=== PATIENT | female | born 1945 | race Asian ===

== ENCOUNTER 2018-09-23 16:40 | Inpatient (IN) | payer MEDICARE, OTHER ==
[2018-09-23 19:55] LABS: ADD MAN DIFF? NO; BASOPHIL # 0.1 10^3/ul (0.0-0.1); BASOPHILS % 0.5 % (0.0-2.0); EOSINOPHILS # 0.3 10^3/ul (0.0-0.5); EOSINOPHILS % 2.9 % (0.0-7.0); HEMATOCRIT 30.9 % (37.0-47.0); HEMOGLOBIN 10.1 g/dl (12.0-16.0); LYMPHOCYTES # 1.8 10^3/ul (0.8-2.9); LYMPHOCYTES % 16.4 % (15.0-51.0); MEAN CORPUSCULAR HGB CONC 32.7 g/dl (32.0-37.0); MEAN CORPUSCULAR VOLUME 91.7 fl (82.0-101.0); MEAN PLATELET VOLUME 8.8 fl (7.4-10.4); MONOCYTE # 0.9 10^3/ul (0.3-0.9); MONOCYTES % 8.4 % (0.0-11.0); NEUTROPHIL # 7.7 10^3/ul (1.6-7.5); NEUTROPHILS % 71.3 % (39.0-77.0); PLATELET COUNT 292 10^3/UL (140-415); RED BLOOD COUNT 3.37 10^6/ul (4.20-5.40); RED CELL DISTRIBUTION WIDTH 13.1 % (11.5-14.5)
[2018-09-23 19:55] LABS: WHITE BLOOD COUNT 10.7 10^3/ul (4.8-10.8)
[2018-09-23] MEDS: ONDANSETRON 4 MG INJ IV (20:02)
[2018-09-23] MEDS: morphine 4 MG/ML VIAL IV (20:03)
[2018-09-23] MEDS: SOD CHLORIDE 0.9% 1,000 ML IV (20:04)
[2018-09-23 20:05] LABS: ADD UMIC YES; UR ASCORBIC ACID NEGATIVE (NEGATIVE); UR BACTERIA FEW /HPF (NONE SEEN); UR BILIRUBIN (Dip) NEGATIVE (NEGATIVE); UR BLOOD (Dip) 1+ mg/dL (NEGATIVE); UR CLARITY CLEAR (CLEAR); UR COLOR STRAW (YELLOW); UR GLUCOSE (Dip) 1+ mg/dL (NEGATIVE); UR KETONES (Dip) NEGATIVE (NEGATIVE); UR LEUKOCYTE ESTERASE (Dip) NEGATIVE Leu/ul (NEGATIVE); UR NITRITE (Dip) NEGATIVE (NEGATIVE); UR RBC 0 /HPF (0-5); UR SPECIFIC GRAVITY (Dip) 1.009 (1.003-1.030); UR TOTAL PROTEIN (Dip) 2+ mg/dl (NEGATIVE); UR UROBILINOGEN (Dip) NEGATIVE (NEGATIVE); UR WBC 3 /HPF (0-5)
[2018-09-23 20:13] LABS: ALBUMIN 4.6 g/dl (3.3-4.9); ALBUMIN/GLOBULIN RATIO 1.02; ALKALINE PHOSPHATASE 89 IU/L (42-121); ANION GAP 12 (5-13); ASPARTATE AMINO TRANSFERASE 19 IU/L (15-46); BILIRUBIN,INDIRECT 0.2 mg/dl (0-1.1); BILIRUBIN,TOTAL 0.2 mg/dl (0.2-1.3); BLOOD UREA NITROGEN 86 mg/dl (7-20); CALCIUM 9.5 mg/dl (8.4-10.2); CARBON DIOXIDE 16 mmol/L (21-31); CHLORIDE 113 mmol/L (97-110); GLUCOSE 95 mg/dl (70-220); LIPASE 678 U/L (23-300); SODIUM 141 mmol/L (135-144); TOTAL PROTEIN 9.1 g/dl (6.1-8.1)
[2018-09-23 20:27] LABS: ALANINE AMINOTRANSFERASE < 6 IU/L (13-69); POTASSIUM 7.6 mmol/L (3.5-5.1)
[2018-09-23] MEDS ORDERED: NA POLYST SULFON 15 GM/60 ML BTL PO ×2 (20:31→23:00)
[2018-09-23] MEDS: NA BICARBONATE 8.4% 50 ML SYG IV (21:01)
[2018-09-23] MEDS: CA CHLORIDE 10% 10 ML SYRINGE IV (21:01)
[2018-09-23] MEDS: NA POLYST SULFON 15 GM/60 ML BTL PO ×2 (21:08→21:32)
[2018-09-23] MEDS: ALBUTEROL 0.5% (NEB) 2.5 MG/0.5 ML AMP INH (21:38)
[2018-09-23] MEDS ORDERED: ACETAMINOPHEN 325 MG TAB PO (23:00)
[2018-09-23] MEDS ORDERED: ONDANSETRON 4 MG INJ IV (23:00)
[2018-09-24] MEDS ORDERED: NACL 0.9% 3 ML SYG IV
[2018-09-24] MEDS ORDERED: LORAZEPAM 1 MG TAB PO
[2018-09-24] MEDS ORDERED: ACETAMINOPHEN 650 MG SUPP PR
[2018-09-24] MEDS ORDERED: ZOLPIDEM 5 MG TAB PO
[2018-09-24] MEDS ORDERED: ONDANSETRON 4 MG INJ IV
[2018-09-24] MEDS ORDERED: GLUCAGON 1 MG INJ IM (00:30)
[2018-09-24] MEDS ORDERED: GLUCOSE GEL 15 GRAM TUBE BUCCAL (00:30)
[2018-09-24] MEDS ORDERED: GLUCOSE GEL 15 GRAM TUBE PO ×2 (00:30)
[2018-09-24] MEDS ORDERED: DEXTROSE 50% 50 ML SYRINGE IV ×2 (00:30)
[2018-09-24 00:33] LABS: SODIUM,URINE RANDOM 89 mmol/L (30-90)
[2018-09-24 00:33] LABS: CREATININE,URINE RANDOM 42.01 mg/dl (20-320)
[2018-09-24 00:34] LABS: CREATININE,URINE RANDOM 42.03 mg/dl (20-320)
[2018-09-24] MEDS: INSULIN ASPART [NOVOLOG] 3 ML PEN SC ×6 (01:00→22:41)
[2018-09-24] MEDS: SOD CHLORIDE 0.45% 1,000 ML IV ×2 (01:09→17:59)
[2018-09-24 01:13] LABS: ANION GAP 11 (5-13); BLOOD UREA NITROGEN 82 mg/dl (7-20); CALCIUM 10.3 mg/dl (8.4-10.2); CARBON DIOXIDE 14 mmol/L (21-31); CHLORIDE 119 mmol/L (97-110); CREATININE 4.69 mg/dl (0.44-1.00); GLUCOSE 110 mg/dl (70-220); SODIUM 144 mmol/L (135-144)
[2018-09-24 01:23] LABS: POTASSIUM 6.4 mmol/L (3.5-5.1)
[2018-09-24] MEDS: ACCU-CHEK XX (02:00)
[2018-09-24 03:03] LABS: HEMOGLOBIN A1C 6.3 % (0-5.9)
[2018-09-24] MEDS: PANTOPRAZOLE 40 MG INJ IV ×2 (05:18→05:19)
[2018-09-24] MEDS: NA POLYST SULFON 15 GM/60 ML BTL PO ×2 (05:18→11:25)
[2018-09-24 05:39] LABS: ADD MAN DIFF? NO; HAAIG REFLEX REFLEX FILED
[2018-09-24 05:43] LABS: BASOPHIL # 0.1 10^3/ul (0.0-0.1); BASOPHILS % 0.5 % (0.0-2.0); EOSINOPHILS # 0.2 10^3/ul (0.0-0.5); EOSINOPHILS % 2.6 % (0.0-7.0); HEMATOCRIT 26.4 % (37.0-47.0); HEMOGLOBIN 8.3 g/dl (12.0-16.0); LYMPHOCYTES # 1.7 10^3/ul (0.8-2.9); MEAN CORPUSCULAR HEMOGLOBIN 29.4 pg (29.0-33.0); MEAN CORPUSCULAR HGB CONC 31.4 g/dl (32.0-37.0); MEAN CORPUSCULAR VOLUME 93.6 fl (82.0-101.0); MEAN PLATELET VOLUME 9.3 fl (7.4-10.4); MONOCYTE # 0.7 10^3/ul (0.3-0.9); NEUTROPHIL # 6.5 10^3/ul (1.6-7.5); NEUTROPHILS % 70.5 % (39.0-77.0); PLATELET COUNT 256 10^3/UL (140-415); RED BLOOD COUNT 2.82 10^6/ul (4.20-5.40); RED CELL DISTRIBUTION WIDTH 13.2 % (11.5-14.5)
[2018-09-24 05:43] LABS: WHITE BLOOD COUNT 9.2 10^3/ul (4.8-10.8)
[2018-09-24 06:08] LABS: HEMOGLOBIN A1C 6.3 % (0-5.9)
[2018-09-24 06:32] LABS: ALANINE AMINOTRANSFERASE 23 IU/L (13-69); ALBUMIN 3.5 g/dl (3.3-4.9); ALBUMIN/GLOBULIN RATIO 1.16; ALKALINE PHOSPHATASE 67 IU/L (42-121); ANION GAP 10 (5-13); ASPARTATE AMINO TRANSFERASE 13 IU/L (15-46); BILIRUBIN,INDIRECT 0.2 mg/dl (0-1.1); BILIRUBIN,TOTAL 0.2 mg/dl (0.2-1.3); BLOOD UREA NITROGEN 78 mg/dl (7-20); CALCIUM 9.6 mg/dl (8.4-10.2); CARBON DIOXIDE 15 mmol/L (21-31); CHLORIDE 118 mmol/L (97-110); CREATININE 4.66 mg/dl (0.44-1.00); GLUCOSE 90 mg/dl (70-220); SODIUM 143 mmol/L (135-144); TOTAL PROTEIN 6.5 g/dl (6.1-8.1)
[2018-09-24 06:39] LABS: POTASSIUM 7.1 mmol/L (3.5-5.1)
[2018-09-24 06:50] LABS: HEPATITIS B SURFACE ANTIGEN NEGATIVE (NEGATIVE)
[2018-09-24] MEDS ORDERED: NA POLYST SULFON 15 GM/60 ML BTL PO ×2 (07:00→11:00)
[2018-09-24 07:08] LABS: HEPATITIS B CORE ANTIBODY NEGATIVE (NEGATIVE); HEPATITIS C VIRAL ANTIBODY NEGATIVE (NEGATIVE)
[2018-09-24] MEDS: ASPIRIN (EC) 81 MG TAB PO (09:17)
[2018-09-24] MEDS: AMLODIPINE 10 MG TAB PO (09:18)
[2018-09-24] MEDS: ENOXAPARIN 30 MG/0.3 ML SYG SC (09:19)
[2018-09-24 09:54] LABS: ANION GAP 12 (5-13); BLOOD UREA NITROGEN 75 mg/dl (7-20); CALCIUM 9.1 mg/dl (8.4-10.2); CARBON DIOXIDE 14 mmol/L (21-31); CHLORIDE 120 mmol/L (97-110); CREATININE 4.39 mg/dl (0.44-1.00); GLUCOSE 98 mg/dl (70-220); SODIUM 146 mmol/L (135-144)
[2018-09-24 10:06] LABS: POTASSIUM 6.6 mmol/L (3.5-5.1)
[2018-09-24 11:35] LABS: AADO2 Arterial 54.6 mmHg (7.0-24.0); Allen Test ACCEPTAB; Arterial Base Excess -12.1 mmol/L (-3.0-3); Arterial Blood Gas Oxygen Sat 96.7 mmHG (95.0-100.0); Arterial COHb 0.3 % (0.0-3.0); Arterial Fraction of Oxyhgb 96.3 % (93.0-99.0); Arterial HCO3 14.3 mmol/L (22.0-26.0); Arterial MetHb 0.1 % (0.0-1.5); Arterial pCO2 34.4 mmhg (35-45); MODE NASAL CANNULA; Site Right Radial
[2018-09-24] MEDS: SODIUM BICARBONATE (IV ADD) 150 MEQ in DEXTROSE 5% 850 ML IV (12:21)
[2018-09-24] MEDS: METOPROLOL (XL) 50 MG TAB PO (12:41)
[2018-09-24 14:19] LABS: ANION GAP 12 (5-13); BLOOD UREA NITROGEN 71 mg/dl (7-20); CALCIUM 9.6 mg/dl (8.4-10.2); CARBON DIOXIDE 16 mmol/L (21-31); CHLORIDE 117 mmol/L (97-110); CREATININE 4.66 mg/dl (0.44-1.00); GLUCOSE 131 mg/dl (70-220); SODIUM 145 mmol/L (135-144)
[2018-09-24] MEDS ORDERED: HEPARIN 1000 UNITS/ML 10 ML INJ (14:26)
[2018-09-24 14:30] LABS: POTASSIUM 6.4 mmol/L (3.5-5.1)
[2018-09-24] MEDS: HEPARIN 1000 UNITS/ML 10 ML INJ CATHETER ×2 (14:59→20:18)
[2018-09-24] MEDS: MANNITOL 25% 50 ML INJ IV* ×2 (18:09→19:13)
[2018-09-24] MEDS: ATORVASTATIN 20 MG TAB PO (21:25)
[2018-09-24 22:51] LABS: ANION GAP 12 (5-13); BLOOD UREA NITROGEN 42 mg/dl (7-20); CARBON DIOXIDE 20 mmol/L (21-31); CHLORIDE 108 mmol/L (97-110); CREATININE 2.97 mg/dl (0.44-1.00); GLUCOSE 203 mg/dl (70-220); SODIUM 140 mmol/L (135-144)
[2018-09-25] MEDS: ACCU-CHEK XX (01:36)
[2018-09-25 04:54] LABS: ADD MAN DIFF? NO
[2018-09-25 04:59] LABS: WHITE BLOOD COUNT 11.4 10^3/ul (4.8-10.8)
[2018-09-25 04:59] LABS: BASOPHIL # 0.1 10^3/ul (0.0-0.1); BASOPHILS % 0.4 % (0.0-2.0); EOSINOPHILS # 0.3 10^3/ul (0.0-0.5); EOSINOPHILS % 2.9 % (0.0-7.0); HEMOGLOBIN 8.6 g/dl (12.0-16.0); LYMPHOCYTES # 1.4 10^3/ul (0.8-2.9); LYMPHOCYTES % 11.9 % (15.0-51.0); MEAN CORPUSCULAR HEMOGLOBIN 29.6 pg (29.0-33.0); MEAN CORPUSCULAR HGB CONC 31.9 g/dl (32.0-37.0); MEAN CORPUSCULAR VOLUME 92.8 fl (82.0-101.0); MEAN PLATELET VOLUME 9.1 fl (7.4-10.4); MONOCYTES % 8.3 % (0.0-11.0); NEUTROPHIL # 8.7 10^3/ul (1.6-7.5); NEUTROPHILS % 76.1 % (39.0-77.0); PLATELET COUNT 208 10^3/UL (140-415); RED BLOOD COUNT 2.91 10^6/ul (4.20-5.40)
[2018-09-25 05:24] LABS: ANION GAP 11 (5-13); BLOOD UREA NITROGEN 45 mg/dl (7-20); CALCIUM 8.2 mg/dl (8.4-10.2); CARBON DIOXIDE 22 mmol/L (21-31); CHLORIDE 112 mmol/L (97-110); CREATININE 3.32 mg/dl (0.44-1.00); GLUCOSE 109 mg/dl (70-220); POTASSIUM 4.4 mmol/L (3.5-5.1); SODIUM 145 mmol/L (135-144)
[2018-09-25 05:31] LABS: PHOSPHORUS 4.9 mg/dl (2.5-4.9)
[2018-09-25 05:31] LABS: MAGNESIUM 1.5 mg/dl (1.7-2.5)
[2018-09-25] MEDS: PANTOPRAZOLE (EC) 40 MG TAB PO (06:00)
[2018-09-25] MEDS: INSULIN ASPART [NOVOLOG] 3 ML PEN SC ×4 (07:35→21:00)
[2018-09-25] MEDS: AMLODIPINE 10 MG TAB PO (08:45)
[2018-09-25] MEDS: ASPIRIN (EC) 81 MG TAB PO (08:46)
[2018-09-25] MEDS: METOPROLOL (XL) 50 MG TAB PO ×2 (08:47→09:00)
[2018-09-25] MEDS: ENOXAPARIN 30 MG/0.3 ML SYG SC (08:49)
[2018-09-25 11:01] LABS: ANION GAP 10 (5-13); BLOOD UREA NITROGEN 47 mg/dl (7-20); CALCIUM 7.8 mg/dl (8.4-10.2); CARBON DIOXIDE 21 mmol/L (21-31); CHLORIDE 111 mmol/L (97-110); CREATININE 3.29 mg/dl (0.44-1.00); GLUCOSE 126 mg/dl (70-220); POTASSIUM 4.5 mmol/L (3.5-5.1); SODIUM 142 mmol/L (135-144)
[2018-09-25] MEDS: SOD CHLORIDE 0.45% 1,000 ML IV (12:57)
[2018-09-25] MEDS: ACETAMINOPHEN 325 MG TAB PO (15:19)
[2018-09-25 18:06] LABS: ANION GAP 12 (5-13); BLOOD UREA NITROGEN 48 mg/dl (7-20); CALCIUM 8.2 mg/dl (8.4-10.2); CARBON DIOXIDE 22 mmol/L (21-31); CHLORIDE 109 mmol/L (97-110); CREATININE 3.56 mg/dl (0.44-1.00); GLUCOSE 94 mg/dl (70-220); POTASSIUM 4.7 mmol/L (3.5-5.1); SODIUM 143 mmol/L (135-144)
[2018-09-25] MEDS: traMADol 50 MG TAB PO (18:56)
[2018-09-25] MEDS: ATORVASTATIN 20 MG TAB PO (21:03)
[2018-09-26] MEDS: ACCU-CHEK XX (02:00)
[2018-09-26] MEDS: ACETAMINOPHEN 325 MG TAB PO (03:06)
[2018-09-26] MEDS: SOD CHLORIDE 0.45% 1,000 ML IV (05:12)
[2018-09-26] MEDS: PANTOPRAZOLE (EC) 40 MG TAB PO (05:12)
[2018-09-26 05:44] LABS: ADD MAN DIFF? NO
[2018-09-26 05:48] LABS: BASOPHILS % 0.2 % (0.0-2.0); EOSINOPHILS # 0.2 10^3/ul (0.0-0.5); EOSINOPHILS % 1.2 % (0.0-7.0); HEMATOCRIT 24.5 % (37.0-47.0); LYMPHOCYTES # 1.3 10^3/ul (0.8-2.9); LYMPHOCYTES % 9.1 % (15.0-51.0); MEAN CORPUSCULAR HEMOGLOBIN 29.6 pg (29.0-33.0); MEAN CORPUSCULAR HGB CONC 32.7 g/dl (32.0-37.0); MEAN CORPUSCULAR VOLUME 90.7 fl (82.0-101.0); MEAN PLATELET VOLUME 9.5 fl (7.4-10.4); MONOCYTE # 1.3 10^3/ul (0.3-0.9); MONOCYTES % 9.4 % (0.0-11.0); NEUTROPHIL # 11.2 10^3/ul (1.6-7.5); NEUTROPHILS % 79.7 % (39.0-77.0); PLATELET COUNT 202 10^3/UL (140-415)
[2018-09-26 06:04] LABS: ALANINE AMINOTRANSFERASE 11 IU/L (13-69); ALBUMIN 3.5 g/dl (3.3-4.9); ALBUMIN/GLOBULIN RATIO 0.97; ALKALINE PHOSPHATASE 73 IU/L (42-121); ANION GAP 10 (5-13); ASPARTATE AMINO TRANSFERASE 15 IU/L (15-46); BILIRUBIN,INDIRECT 0.3 mg/dl (0-1.1); BILIRUBIN,TOTAL 0.3 mg/dl (0.2-1.3); BLOOD UREA NITROGEN 47 mg/dl (7-20); CALCIUM 8.3 mg/dl (8.4-10.2); CARBON DIOXIDE 22 mmol/L (21-31); CHLORIDE 112 mmol/L (97-110); CREATININE 3.55 mg/dl (0.44-1.00); GLUCOSE 117 mg/dl (70-220); POTASSIUM 4.9 mmol/L (3.5-5.1); SODIUM 144 mmol/L (135-144); TOTAL PROTEIN 7.1 g/dl (6.1-8.1)
[2018-09-26] MEDS: INSULIN ASPART [NOVOLOG] 3 ML PEN SC ×4 (07:51→21:00)
[2018-09-26] MEDS: traMADol 50 MG TAB PO (08:13)
[2018-09-26] MEDS: ASPIRIN (EC) 81 MG TAB PO (08:13)
[2018-09-26] MEDS: AMLODIPINE 10 MG TAB PO (08:13)
[2018-09-26] MEDS: METOPROLOL (XL) 50 MG TAB PO (08:14)
[2018-09-26] MEDS: ENOXAPARIN 30 MG/0.3 ML SYG SC (08:22)
[2018-09-26] MEDS: HEPARIN 1000 UNITS/ML 10 ML INJ CATHETER (10:56)
[2018-09-26] MEDS: BISACODYL (EC) 5 MG TAB PO (12:44)
[2018-09-26] MEDS: POLYETHYLENE GLYCOL 17 GM PACKET PO (12:44)
[2018-09-26 15:37] LABS: URIC ACID 4.9 mg/dl (3.1-7.9)
[2018-09-26] MEDS: CEFTRIAXONE 1 GM/50 ML (PMX) 50 ML IVPB (18:25)
[2018-09-26] MEDS: ATORVASTATIN 20 MG TAB PO (21:11)
[2018-09-26] MEDS: IBUPROFEN 600 MG TAB PO (21:12)
[2018-09-27] MEDS: ACCU-CHEK XX (02:00)
[2018-09-27] MEDS: PANTOPRAZOLE (EC) 40 MG TAB PO (05:34)
[2018-09-27 05:44] LABS: WHITE BLOOD COUNT 12.8 10^3/ul (4.8-10.8)
[2018-09-27 05:44] LABS: ADD MAN DIFF? NO; BASOPHILS % 0.3 % (0.0-2.0); EOSINOPHILS # 0.3 10^3/ul (0.0-0.5); HEMATOCRIT 23.4 % (37.0-47.0); HEMOGLOBIN 7.6 g/dl (12.0-16.0); LYMPHOCYTES # 1.8 10^3/ul (0.8-2.9); LYMPHOCYTES % 14.1 % (15.0-51.0); MEAN CORPUSCULAR HEMOGLOBIN 29.7 pg (29.0-33.0); MEAN CORPUSCULAR HGB CONC 32.5 g/dl (32.0-37.0); MEAN CORPUSCULAR VOLUME 91.4 fl (82.0-101.0); MEAN PLATELET VOLUME 9.6 fl (7.4-10.4); MONOCYTE # 1.4 10^3/ul (0.3-0.9); MONOCYTES % 10.5 % (0.0-11.0); NEUTROPHIL # 9.3 10^3/ul (1.6-7.5); NEUTROPHILS % 72.6 % (39.0-77.0); PLATELET COUNT 196 10^3/UL (140-415); RED BLOOD COUNT 2.56 10^6/ul (4.20-5.40); RED CELL DISTRIBUTION WIDTH 12.9 % (11.5-14.5)
[2018-09-27 06:31] LABS: ALANINE AMINOTRANSFERASE 11 IU/L (13-69); ALBUMIN 3.4 g/dl (3.3-4.9); ALBUMIN/GLOBULIN RATIO 0.97; ALKALINE PHOSPHATASE 67 IU/L (42-121); ANION GAP 14 (5-13); ASPARTATE AMINO TRANSFERASE 15 IU/L (15-46); BILIRUBIN,INDIRECT 0.2 mg/dl (0-1.1); BILIRUBIN,TOTAL 0.2 mg/dl (0.2-1.3); BLOOD UREA NITROGEN 49 mg/dl (7-20); CALCIUM 8.2 mg/dl (8.4-10.2); CARBON DIOXIDE 20 mmol/L (21-31); CHLORIDE 109 mmol/L (97-110); CREATININE 3.65 mg/dl (0.44-1.00); GLUCOSE 117 mg/dl (70-220); POTASSIUM 4.5 mmol/L (3.5-5.1); SODIUM 143 mmol/L (135-144); TOTAL PROTEIN 6.9 g/dl (6.1-8.1)
[2018-09-27] MEDS: INSULIN ASPART [NOVOLOG] 3 ML PEN SC ×4 (07:54→20:46)
[2018-09-27] MEDS: AMLODIPINE 10 MG TAB PO (08:49)
[2018-09-27] MEDS: IBUPROFEN 600 MG TAB PO ×2 (08:49→20:47)
[2018-09-27] MEDS: ASPIRIN (EC) 81 MG TAB PO (08:49)
[2018-09-27] MEDS: METOPROLOL (XL) 50 MG TAB PO (08:50)
[2018-09-27] MEDS: ENOXAPARIN 30 MG/0.3 ML SYG SC (08:55)
[2018-09-27] MEDS: POLYETHYLENE GLYCOL 17 GM PACKET PO (08:56)
[2018-09-27 14:48] LABS: URIC ACID 7.1 mg/dl (3.1-7.9)
[2018-09-27] MEDS: CEFTRIAXONE 1 GM/50 ML (PMX) 50 ML IVPB (17:17)
[2018-09-27] MEDS: EPOETIN 3000 UNITS/1 ML INJ (ESRD) SC (17:18)
[2018-09-27 17:22] LABS: HEMATOCRIT 28.2 % (37.0-47.0)
[2018-09-27] MEDS: ATORVASTATIN 20 MG TAB PO (20:47)
[2018-09-27] MEDS: HEPARIN 1000 UNITS/ML 10 ML INJ CATHETER (20:50)
[2018-09-28] MEDS: ACCU-CHEK XX (02:00)
[2018-09-28] MEDS: PANTOPRAZOLE (EC) 40 MG TAB PO (05:32)
[2018-09-28] MEDS: traMADol 50 MG TAB PO (05:33)
[2018-09-28] MEDS: INSULIN ASPART [NOVOLOG] 3 ML PEN SC ×4 (07:42→20:23)
[2018-09-28] MEDS: ASPIRIN (EC) 81 MG TAB PO (08:49)
[2018-09-28] MEDS: IBUPROFEN 600 MG TAB PO (08:50)
[2018-09-28] MEDS: POLYETHYLENE GLYCOL 17 GM PACKET PO (08:50)
[2018-09-28] MEDS: METOPROLOL (XL) 50 MG TAB PO (08:50)
[2018-09-28] MEDS: ENOXAPARIN 30 MG/0.3 ML SYG SC (08:55)
[2018-09-28] MEDS ORDERED: ALBUMIN HUMAN 25% 50 ML IV (13:00)
[2018-09-28 14:45] LABS: ANION GAP 16 (5-13); BLOOD UREA NITROGEN 50 mg/dl (7-20); CALCIUM 8.8 mg/dl (8.4-10.2); CARBON DIOXIDE 24 mmol/L (21-31); CHLORIDE 95 mmol/L (97-110); CREATININE 3.54 mg/dl (0.44-1.00); GLUCOSE 112 mg/dl (70-220); POTASSIUM 4.5 mmol/L (3.5-5.1); SODIUM 135 mmol/L (135-144)
[2018-09-28] MEDS: CEFTRIAXONE 1 GM/50 ML (PMX) 50 ML IVPB (17:57)
[2018-09-28] MEDS: ATORVASTATIN 20 MG TAB PO (20:23)
[2018-09-28] MEDS: HYDROCODONE/APAP (5/325) TAB PO (23:42)
[2018-09-29] MEDS: ACCU-CHEK XX (02:00)
[2018-09-29] MEDS: PANTOPRAZOLE (EC) 40 MG TAB PO (05:25)
[2018-09-29 06:26] LABS: ADD MAN DIFF? NO
[2018-09-29 06:39] LABS: BASOPHIL # 0.1 10^3/ul (0.0-0.1); BASOPHILS % 0.3 % (0.0-2.0); EOSINOPHILS # 0.4 10^3/ul (0.0-0.5); EOSINOPHILS % 2.2 % (0.0-7.0); HEMATOCRIT 26.4 % (37.0-47.0); HEMOGLOBIN 8.7 g/dl (12.0-16.0); LYMPHOCYTES % 12.5 % (15.0-51.0); MEAN CORPUSCULAR HEMOGLOBIN 29.8 pg (29.0-33.0); MEAN CORPUSCULAR VOLUME 90.4 fl (82.0-101.0); MEAN PLATELET VOLUME 9.8 fl (7.4-10.4); MONOCYTE # 1.3 10^3/ul (0.3-0.9); NEUTROPHIL # 12.1 10^3/ul (1.6-7.5); NEUTROPHILS % 76.2 % (39.0-77.0); PLATELET COUNT 263 10^3/UL (140-415); RED BLOOD COUNT 2.92 10^6/ul (4.20-5.40); RED CELL DISTRIBUTION WIDTH 12.4 % (11.5-14.5)
[2018-09-29 06:39] LABS: WHITE BLOOD COUNT 15.8 10^3/ul (4.8-10.8)
[2018-09-29 07:05] LABS: MAGNESIUM 1.7 mg/dl (1.7-2.5)
[2018-09-29 07:07] LABS: PHOSPHORUS 6.6 mg/dl (2.5-4.9)
[2018-09-29 07:38] LABS: ANION GAP 16 (5-13); BLOOD UREA NITROGEN 61 mg/dl (7-20); CALCIUM 8.9 mg/dl (8.4-10.2); CARBON DIOXIDE 24 mmol/L (21-31); CHLORIDE 99 mmol/L (97-110); CREATININE 4.52 mg/dl (0.44-1.00); GLUCOSE 111 mg/dl (70-220); POTASSIUM 4.9 mmol/L (3.5-5.1); SODIUM 139 mmol/L (135-144)
[2018-09-29] MEDS: INSULIN ASPART [NOVOLOG] 3 ML PEN SC ×4 (08:00→20:56)
[2018-09-29] MEDS: ASPIRIN (EC) 81 MG TAB PO (08:33)
[2018-09-29] MEDS: POLYETHYLENE GLYCOL 17 GM PACKET PO (08:33)
[2018-09-29] MEDS: METOPROLOL (XL) 50 MG TAB PO (08:34)
[2018-09-29] MEDS: ENOXAPARIN 30 MG/0.3 ML SYG SC (08:54)
[2018-09-29] MEDS ORDERED: LIDOCAINE 2% (MDV) 20 ML INJ (11:01)
[2018-09-29] MEDS ORDERED: HEPARIN 1000 UNITS/ML 10 ML INJ (11:01)
[2018-09-29] MEDS ORDERED: MIDAZOLAM 1 MG/ML 2 ML INJ (11:47)
[2018-09-29] MEDS ORDERED: FENTAnyl 50 MCG/ML VIAL (11:47)
[2018-09-29] MEDS: traMADol 50 MG TAB PO (18:32)
[2018-09-29] MEDS: HEPARIN 1000 UNITS/ML 10 ML INJ CATHETER (19:46)
[2018-09-29] MEDS: CEFTRIAXONE 1 GM/50 ML (PMX) 50 ML IVPB (20:40)
[2018-09-29] MEDS: ATORVASTATIN 20 MG TAB PO (20:40)
[2018-09-29] MEDS: EPOETIN 3000 UNITS/1 ML INJ (ESRD) SC (20:41)
[2018-09-29] MEDS: HYDROCODONE/APAP (5/325) TAB PO (22:19)
[2018-09-30] MEDS: ACCU-CHEK XX (01:42)
[2018-09-30 05:35] LABS: ADD MAN DIFF? NO
[2018-09-30] MEDS: PANTOPRAZOLE (EC) 40 MG TAB PO (05:37)
[2018-09-30 05:59] LABS: BASOPHIL # 0.1 10^3/ul (0.0-0.1); BASOPHILS % 0.4 % (0.0-2.0); EOSINOPHILS # 0.2 10^3/ul (0.0-0.5); EOSINOPHILS % 1.2 % (0.0-7.0); HEMATOCRIT 24.8 % (37.0-47.0); LYMPHOCYTES # 1.5 10^3/ul (0.8-2.9); LYMPHOCYTES % 11.7 % (15.0-51.0); MEAN CORPUSCULAR HEMOGLOBIN 29.3 pg (29.0-33.0); MEAN CORPUSCULAR HGB CONC 32.3 g/dl (32.0-37.0); MEAN CORPUSCULAR VOLUME 90.8 fl (82.0-101.0); MEAN PLATELET VOLUME 9.5 fl (7.4-10.4); MONOCYTE # 1.5 10^3/ul (0.3-0.9); MONOCYTES % 11.4 % (0.0-11.0); NEUTROPHIL # 9.6 10^3/ul (1.6-7.5); NEUTROPHILS % 74.7 % (39.0-77.0); PLATELET COUNT 237 10^3/UL (140-415); RED BLOOD COUNT 2.73 10^6/ul (4.20-5.40); RED CELL DISTRIBUTION WIDTH 12.5 % (11.5-14.5)
[2018-09-30 05:59] LABS: WHITE BLOOD COUNT 12.8 10^3/ul (4.8-10.8)
[2018-09-30 06:12] LABS: PHOSPHORUS 5.8 mg/dl (2.5-4.9)
[2018-09-30 06:12] LABS: MAGNESIUM 2.1 mg/dl (1.7-2.5)
[2018-09-30 06:28] LABS: ANION GAP 12 (5-13); BLOOD UREA NITROGEN 34 mg/dl (7-20); CALCIUM 9.1 mg/dl (8.4-10.2); CARBON DIOXIDE 30 mmol/L (21-31); CHLORIDE 101 mmol/L (97-110); CREATININE 3.07 mg/dl (0.44-1.00); GLUCOSE 110 mg/dl (70-220); POTASSIUM 4.7 mmol/L (3.5-5.1); SODIUM 143 mmol/L (135-144)
[2018-09-30] MEDS: INSULIN ASPART [NOVOLOG] 3 ML PEN SC ×4 (08:00→20:41)
[2018-09-30] MEDS: METOPROLOL (XL) 50 MG TAB PO (08:11)
[2018-09-30] MEDS: ASPIRIN (EC) 81 MG TAB PO (08:11)
[2018-09-30] MEDS: POLYETHYLENE GLYCOL 17 GM PACKET PO (08:12)
[2018-09-30] MEDS: HYDROCODONE/APAP (5/325) TAB PO ×2 (08:12→17:12)
[2018-09-30] MEDS: ENOXAPARIN 30 MG/0.3 ML SYG SC (08:17)
[2018-09-30] MEDS ORDERED: HEPARIN 1000 UNITS/ML 10 ML INJ CATHETER (15:00)
[2018-09-30] MEDS: CEFTRIAXONE 1 GM/50 ML (PMX) 50 ML IVPB (17:08)
[2018-09-30] MEDS: BUPIVACAINE 0.5%/EPI (SDV) 30 ML INJ INJ (17:15)
[2018-09-30] MEDS: BETAMET NA PHOS/AC(6 MG/ML) 5ML INJ INJ (17:15)
[2018-09-30] MEDS: ATORVASTATIN 20 MG TAB PO (20:37)
[2018-10-01] MEDS: ACCU-CHEK XX (02:08)
[2018-10-01] MEDS: HYDROCODONE/APAP (5/325) TAB PO (04:27)
[2018-10-01] MEDS: PANTOPRAZOLE (EC) 40 MG TAB PO (05:23)
[2018-10-01 05:30] LABS: ADD MAN DIFF? NO
[2018-10-01 05:42] LABS: WHITE BLOOD COUNT 11.9 10^3/ul (4.8-10.8)
[2018-10-01 05:42] LABS: BASOPHILS % 0.3 % (0.0-2.0); HEMATOCRIT 25.3 % (37.0-47.0); HEMOGLOBIN 8.2 g/dl (12.0-16.0); LYMPHOCYTES # 1.1 10^3/ul (0.8-2.9); MEAN CORPUSCULAR HEMOGLOBIN 29.5 pg (29.0-33.0); MEAN CORPUSCULAR HGB CONC 32.4 g/dl (32.0-37.0); MEAN PLATELET VOLUME 9.6 fl (7.4-10.4); MONOCYTE # 0.3 10^3/ul (0.3-0.9); MONOCYTES % 2.5 % (0.0-11.0); NEUTROPHIL # 10.2 10^3/ul (1.6-7.5); PLATELET COUNT 257 10^3/UL (140-415); RED BLOOD COUNT 2.78 10^6/ul (4.20-5.40); RED CELL DISTRIBUTION WIDTH 12.3 % (11.5-14.5)
[2018-10-01] MEDS: ASPIRIN (EC) 81 MG TAB PO (08:11)
[2018-10-01] MEDS: POLYETHYLENE GLYCOL 17 GM PACKET PO (08:12)
[2018-10-01] MEDS: METOPROLOL (XL) 50 MG TAB PO (08:12)
[2018-10-01] MEDS: LOSARTAN 25 MG TAB PO (08:12)
[2018-10-01] MEDS: ENOXAPARIN 30 MG/0.3 ML SYG SC (08:25)
[2018-10-01] MEDS: INSULIN ASPART [NOVOLOG] 3 ML PEN SC ×3 (08:25→18:09)
[2018-10-01] MEDS: HEPARIN 1000 UNITS/ML 10 ML INJ CATHETER (14:26)
[2018-10-01] MEDS: CEFTRIAXONE 1 GM/50 ML (PMX) 50 ML IVPB (17:17)
[2018-10-01] MEDS: EPOETIN 3000 UNITS/1 ML INJ (ESRD) SC (17:22)
== END 2018-10-01 19:40 | DRG 640 ==
LOC: ICU 22:49 → 6WM 09-26 02:35 → FTE 16:40
PROVIDERS: Internal Medicine Nephrology
PROC: 06HM33Z Insertion of Infusion Device into Right Femoral Vein, Percutaneous Approach (ICD-10-PCS; principal; 2018-09-29 11:00)
PROC: 5A1D70Z Performance of Urinary Filtration, Intermittent, Less than 6 Hours Per Day (ICD-10-PCS; 2018-09-29 11:00)
PROC: 0JHD0XZ Insertion of Tunneled Vascular Access Device into Right Upper Arm Subcutaneous Tissue and Fascia, Open Approach (ICD-10-PCS; 2018-09-29 11:00)
PROC: 02H633Z Insertion of Infusion Device into Right Atrium, Percutaneous Approach (ICD-10-PCS; 2018-09-29 11:00)
DX: E87.5 Hyperkalemia (principal); N18.6 End stage renal disease; I12.0 Hypertensive chronic kidney disease with stage 5 chronic kidney disease or end stage renal disease; N17.9 Acute kidney failure, unspecified; E87.2 Acidosis; E11.22 Type 2 diabetes mellitus with diabetic chronic kidney disease; Z99.2 Dependence on renal dialysis; D63.1 Anemia in chronic kidney disease; M25.562 Pain in left knee; M17.12 Unilateral primary osteoarthritis, left knee; M11.262 Other chondrocalcinosis, left knee
CPT/HCPCS: 36415; 36600; 71045; 73562; 74176; 76775; 80048; 80053; 81001; 81003; 82570; 82803; 82962; 83036; 83690; 83735; 84100; 84155; 84300; 84560; 85014; 85018; 85025; 86704; 86709; 86803; 87081; 87340; 90935; 93005; 93970; 94644; 96374; 96375; 97110; 97116; 97162; 99291-25

== ENCOUNTER 2018-10-02 10:51 | Inpatient (IN) | payer MEDICARE, OTHER ==
[2018-10-02 11:33] LABS: ADD MAN DIFF? NO
[2018-10-02 11:51] LABS: WHITE BLOOD COUNT 18.2 10^3/ul (4.8-10.8)
[2018-10-02 11:51] LABS: BASOPHIL # 0.1 10^3/ul (0.0-0.1); BASOPHILS % 0.4 % (0.0-2.0); EOSINOPHILS % 0.1 % (0.0-7.0); HEMATOCRIT 29.5 % (37.0-47.0); HEMOGLOBIN 9.4 g/dl (12.0-16.0); LYMPHOCYTES # 2.1 10^3/ul (0.8-2.9); LYMPHOCYTES % 11.6 % (15.0-51.0); MEAN CORPUSCULAR HEMOGLOBIN 29.2 pg (29.0-33.0); MEAN CORPUSCULAR HGB CONC 31.9 g/dl (32.0-37.0); MEAN CORPUSCULAR VOLUME 91.6 fl (82.0-101.0); MEAN PLATELET VOLUME 9.3 fl (7.4-10.4); MONOCYTE # 1.3 10^3/ul (0.3-0.9); MONOCYTES % 6.9 % (0.0-11.0); NEUTROPHIL # 14.3 10^3/ul (1.6-7.5); NEUTROPHILS % 78.5 % (39.0-77.0); NUCLEATED RED BLOOD CELLS% 0.1 /100WBC (0.0-0.0); PLATELET COUNT 330 10^3/UL (140-415); RED BLOOD COUNT 3.22 10^6/ul (4.20-5.40); RED CELL DISTRIBUTION WIDTH 12.5 % (11.5-14.5)
[2018-10-02 11:55] LABS: ANION GAP 15 (5-13); BLOOD UREA NITROGEN 63 mg/dl (7-20); CALCIUM 9.4 mg/dl (8.4-10.2); CARBON DIOXIDE 25 mmol/L (21-31); CHLORIDE 102 mmol/L (97-110); CREATININE 3.27 mg/dl (0.44-1.00); GLUCOSE 127 mg/dl (70-220); INR 0.93; PROTIME 12.5 Sec (11.9-14.9); SODIUM 142 mmol/L (135-144)
[2018-10-02 11:56] LABS: PARTIAL THROMBOPLASTIN TIME 29.6 Sec (23.0-35.0)
[2018-10-02] MEDS: DESMOPRESSIN 20 MCG in SOD CHLORIDE 0.9% 50 ML IVPB (12:31)
[2018-10-02] MEDS ORDERED: ONDANSETRON 4 MG INJ IV (13:00)
[2018-10-02] MEDS ORDERED: ACETAMINOPHEN 325 MG TAB PO ×2 (13:00→15:30)
[2018-10-02] MEDS: CEFEPIME 2GM/50 ML (PMX) 50 ML IVPB (13:34)
[2018-10-02] MEDS: VANCOMYCIN 1 GM (PMX) 250 ML IVPB (14:20)
[2018-10-02] MEDS ORDERED: METOPROLOL (XL) 50 MG TAB PO (15:30)
[2018-10-02] MEDS ORDERED: LORAZEPAM 1 MG TAB PO (15:30)
[2018-10-02] MEDS ORDERED: LOSARTAN 25 MG TAB PO (15:30)
[2018-10-02] MEDS: INSULIN ASPART [NOVOLOG] 3 ML PEN SC ×2 (17:26→21:00)
[2018-10-02 17:40] LABS: LACTIC ACID 2.3 mmol/L (0.5-2.0)
[2018-10-02] MEDS: CEFTRIAXONE 1 GM/50 ML (PMX) 50 ML IVPB (18:43)
[2018-10-02] MEDS: ATORVASTATIN 20 MG TAB PO (21:36)
[2018-10-03] MEDS: ACCU-CHEK XX (02:00)
[2018-10-03 06:40] LABS: ADD MAN DIFF? NO
[2018-10-03 06:47] LABS: BASOPHIL # 0.1 10^3/ul (0.0-0.1); BASOPHILS % 0.4 % (0.0-2.0); EOSINOPHILS # 0.1 10^3/ul (0.0-0.5); EOSINOPHILS % 1.1 % (0.0-7.0); HEMATOCRIT 24.3 % (37.0-47.0); HEMOGLOBIN 7.7 g/dl (12.0-16.0); LYMPHOCYTES # 2.1 10^3/ul (0.8-2.9); LYMPHOCYTES % 16.1 % (15.0-51.0); MEAN CORPUSCULAR HEMOGLOBIN 29.5 pg (29.0-33.0); MEAN CORPUSCULAR HGB CONC 31.7 g/dl (32.0-37.0); MEAN CORPUSCULAR VOLUME 93.1 fl (82.0-101.0); MEAN PLATELET VOLUME 9.1 fl (7.4-10.4); MONOCYTE # 1.1 10^3/ul (0.3-0.9); MONOCYTES % 8.7 % (0.0-11.0); NEUTROPHIL # 9.1 10^3/ul (1.6-7.5); NEUTROPHILS % 70.6 % (39.0-77.0); PLATELET COUNT 264 10^3/UL (140-415); RED BLOOD COUNT 2.61 10^6/ul (4.20-5.40); RED CELL DISTRIBUTION WIDTH 12.7 % (11.5-14.5)
[2018-10-03 06:47] LABS: WHITE BLOOD COUNT 12.9 10^3/ul (4.8-10.8)
[2018-10-03 07:14] LABS: ALANINE AMINOTRANSFERASE 13 IU/L (13-69); ALBUMIN 3.5 g/dl (3.3-4.9); ALBUMIN/GLOBULIN RATIO 0.94; ALKALINE PHOSPHATASE 68 IU/L (42-121); ANION GAP 13 (5-13); ASPARTATE AMINO TRANSFERASE 18 IU/L (15-46); BLOOD UREA NITROGEN 72 mg/dl (7-20); CALCIUM 9.1 mg/dl (8.4-10.2); CARBON DIOXIDE 24 mmol/L (21-31); CHLORIDE 108 mmol/L (97-110); CREATININE 3.45 mg/dl (0.44-1.00); GLUCOSE 119 mg/dl (70-220); POTASSIUM 5.1 mmol/L (3.5-5.1); SODIUM 145 mmol/L (135-144); TOTAL PROTEIN 7.2 g/dl (6.1-8.1)
[2018-10-03] MEDS: INSULIN ASPART [NOVOLOG] 3 ML PEN SC ×4 (08:00→20:59)
[2018-10-03] MEDS: METOPROLOL (XL) 50 MG TAB PO (08:24)
[2018-10-03] MEDS: LOSARTAN 25 MG TAB PO (08:24)
[2018-10-03] MEDS ORDERED: ASPIRIN (EC) 81 MG TAB PO (09:00)
[2018-10-03] MEDS ORDERED: ENOXAPARIN 30 MG/0.3 ML SYG SC (09:00)
[2018-10-03] MEDS: POLYETHYLENE GLYCOL 17 GM PACKET GTB (12:11)
[2018-10-03] MEDS: BISACODYL (EC) 5 MG TAB PO (17:53)
[2018-10-03] MEDS: CEFTRIAXONE 1 GM/50 ML (PMX) 50 ML IVPB (17:53)
[2018-10-03] MEDS: ATORVASTATIN 20 MG TAB PO (20:51)
[2018-10-03] MEDS: HYDROCODONE/APAP (5/325) TAB PO (21:05)
[2018-10-04] MEDS: ACCU-CHEK XX (02:00)
[2018-10-04 06:19] LABS: ABNORMAL IP MESSAGE 1; HEMATOCRIT 26.5 % (37.0-47.0); HEMOGLOBIN 8.3 g/dl (12.0-16.0); MEAN CORPUSCULAR HGB CONC 31.3 g/dl (32.0-37.0); MEAN CORPUSCULAR VOLUME 92.7 fl (82.0-101.0); MEAN PLATELET VOLUME 9.1 fl (7.4-10.4); NUCLEATED RED BLOOD CELLS% 0.2 /100WBC (0.0-0.0); PLATELET COUNT 303 10^3/UL (140-415); RED BLOOD COUNT 2.86 10^6/ul (4.20-5.40); RED CELL DISTRIBUTION WIDTH 12.7 % (11.5-14.5)
[2018-10-04 06:19] LABS: WHITE BLOOD COUNT 13.5 10^3/ul (4.8-10.8)
[2018-10-04 06:28] LABS: ADD MAN DIFF? YES; POSITIVE DIFF @See below
[2018-10-04 06:47] LABS: LACTIC ACID 1.1 mmol/L (0.5-2.0)
[2018-10-04 06:55] LABS: ANION GAP 17 (5-13); BLOOD UREA NITROGEN 83 mg/dl (7-20); CALCIUM 9.1 mg/dl (8.4-10.2); CARBON DIOXIDE 21 mmol/L (21-31); CHLORIDE 105 mmol/L (97-110); CREATININE 3.71 mg/dl (0.44-1.00); GLUCOSE 110 mg/dl (70-220); POTASSIUM 5.2 mmol/L (3.5-5.1); SODIUM 143 mmol/L (135-144)
[2018-10-04 07:02] LABS: BASOPHIL #M 0.2 10^3/ul (0.0-0.0); BASOPHILS % (M) 2 % (0-2); EOSINOPHILS % (M) 3 % (0-7); LYMPHOCYTES #M 2.8 10^3/ul (0.8-2.9); LYMPHOCYTES % (M) 21 % (15-51); MONOCYTE #M 0.4 10^3/ul (0.3-0.9); MONOCYTES % (M) 3 % (0-11); MYELOCYTES #M 0.2 10^3/ul (0.0-0.0); MYELOCYTES % (M) 2 % (0-0); PLATELET ESTIMATE NORMAL; POLYCHROMASIA 1+ (0-0); SEGMENTED NEUTROPHILS (M) % 69 % (39-77); SMUDGE%M 11 % (0-0)
[2018-10-04] MEDS: INSULIN ASPART [NOVOLOG] 3 ML PEN SC ×4 (08:00→20:33)
[2018-10-04] MEDS: LOSARTAN 25 MG TAB PO (09:00)
[2018-10-04] MEDS: METOPROLOL (XL) 50 MG TAB PO (09:00)
[2018-10-04] MEDS: HEPARIN 1000 UNITS/ML 10 ML INJ CATHETER (13:42)
[2018-10-04] MEDS: EPOETIN 3000 UNITS/1 ML INJ (ESRD) SC (17:07)
[2018-10-04] MEDS: HYDROCODONE/APAP (5/325) TAB PO (17:20)
[2018-10-04] MEDS: CEFTRIAXONE 1 GM/50 ML (PMX) 50 ML IVPB (17:49)
[2018-10-04] MEDS: ATORVASTATIN 20 MG TAB PO (20:01)
[2018-10-05] MEDS: ACCU-CHEK XX (02:00)
[2018-10-05 06:11] LABS: ABNORMAL IP MESSAGE 1; HEMATOCRIT 27.1 % (37.0-47.0); HEMOGLOBIN 8.6 g/dl (12.0-16.0); MEAN CORPUSCULAR HEMOGLOBIN 29.4 pg (29.0-33.0); MEAN CORPUSCULAR HGB CONC 31.7 g/dl (32.0-37.0); MEAN CORPUSCULAR VOLUME 92.5 fl (82.0-101.0); MEAN PLATELET VOLUME 8.9 fl (7.4-10.4); NUCLEATED RED BLOOD CELLS% 0.1 /100WBC (0.0-0.0); PLATELET COUNT 266 10^3/UL (140-415); RED BLOOD COUNT 2.93 10^6/ul (4.20-5.40); RED CELL DISTRIBUTION WIDTH 12.5 % (11.5-14.5)
[2018-10-05 06:11] LABS: WHITE BLOOD COUNT 14.4 10^3/ul (4.8-10.8)
[2018-10-05 06:37] LABS: ADD MAN DIFF? YES; POSITIVE DIFF @See below
[2018-10-05 06:56] LABS: MAGNESIUM 1.9 mg/dl (1.7-2.5)
[2018-10-05 06:56] LABS: PHOSPHORUS 5.7 mg/dl (2.5-4.9)
[2018-10-05 06:57] LABS: ANION GAP 15 (5-13); BLOOD UREA NITROGEN 50 mg/dl (7-20); CALCIUM 9.1 mg/dl (8.4-10.2); CARBON DIOXIDE 26 mmol/L (21-31); CHLORIDE 99 mmol/L (97-110); CREATININE 2.93 mg/dl (0.44-1.00); GLUCOSE 120 mg/dl (70-220); POTASSIUM 5.2 mmol/L (3.5-5.1); SODIUM 140 mmol/L (135-144)
[2018-10-05 07:49] LABS: BAND NEUTROPHILS #M 0.7 10^3/ul (0.0-0.6); BAND NEUTROPHILS % (M) 5 % (0-4); EOSINOPHILS % (M) 5 % (0-7); HYPOCHROMASIA 1+ (0-0); LYMPHOCYTES #M 2.8 10^3/ul (0.8-2.9); LYMPHOCYTES % (M) 20 % (15-51); METAMYELOCYTES #M 0.5 10^3/ul (0.0-0.0); METAMYELOCYTES %M 4 % (0-0); MONOCYTE #M 0.5 10^3/ul (0.3-0.9); MONOCYTES % (M) 4 % (0-11); PLATELET ESTIMATE NORMAL; POLYCHROMASIA 1+ (0-0); REACTIVE LYMPHOCYTES #M 0.4 10^3/ul (0.0-0.0); REACTIVE LYMPHOCYTES% (M) 3 % (0-0); SEG NEUT #M 8.6 10^3/ul (1.6-7.5); SEGMENTED NEUTROPHILS (M) % 59 % (39-77); SMUDGE%M 7 % (0-0)
[2018-10-05] MEDS: INSULIN ASPART [NOVOLOG] 3 ML PEN SC ×4 (08:00→20:44)
[2018-10-05] MEDS: METOPROLOL (XL) 50 MG TAB PO (09:12)
[2018-10-05] MEDS: LOSARTAN 25 MG TAB PO (09:13)
[2018-10-05] MEDS: HYDROCODONE/APAP (5/325) TAB PO (19:23)
[2018-10-05] MEDS: ATORVASTATIN 20 MG TAB PO (20:41)
[2018-10-06] MEDS: ACCU-CHEK XX (01:30)
[2018-10-06] MEDS: INSULIN ASPART [NOVOLOG] 3 ML PEN SC ×4 (08:00→20:53)
[2018-10-06] MEDS: METOPROLOL (XL) 50 MG TAB PO (09:00)
[2018-10-06] MEDS: LOSARTAN 25 MG TAB PO (09:00)
[2018-10-06] MEDS: HYDROCODONE/APAP (5/325) TAB PO (09:08)
[2018-10-06] MEDS: HEPARIN 1000 UNITS/ML 10 ML INJ CATHETER (13:09)
[2018-10-06] MEDS ORDERED: GLUCAGON 1 MG INJ IM (14:30)
[2018-10-06] MEDS ORDERED: DEXTROSE 50% 50 ML SYRINGE IV ×2 (14:30)
[2018-10-06] MEDS ORDERED: GLUCOSE GEL 15 GRAM TUBE PO ×2 (14:30)
[2018-10-06] MEDS ORDERED: GLUCOSE GEL 15 GRAM TUBE BUCCAL (14:30)
[2018-10-06] MEDS: EPOETIN 3000 UNITS/1 ML INJ (ESRD) SC (17:30)
[2018-10-06] MEDS: POLYETHYLENE GLYCOL 17 GM PACKET GTB (20:53)
[2018-10-06] MEDS: ATORVASTATIN 20 MG TAB PO (20:53)
[2018-10-07] MEDS: HYDROCODONE/APAP (5/325) TAB PO
[2018-10-07] MEDS: ACCU-CHEK XX (02:00)
[2018-10-07] MEDS: INSULIN ASPART [NOVOLOG] 3 ML PEN SC ×2 (07:56→12:00)
[2018-10-07] MEDS: LOSARTAN 25 MG TAB PO (08:39)
[2018-10-07] MEDS: METOPROLOL (XL) 50 MG TAB PO (08:39)
== END 2018-10-07 13:35 | DRG 314 ==
LOC: E/R 10:51 → 2NE 12:56
PROC: 5A1D70Z Performance of Urinary Filtration, Intermittent, Less than 6 Hours Per Day (ICD-10-PCS; principal; 2018-10-04)
DX: T82.838A Hemorrhage due to vascular prosthetic devices, implants and grafts, initial encounter (principal); N18.6 End stage renal disease; E87.0 Hyperosmolality and hypernatremia; I12.0 Hypertensive chronic kidney disease with stage 5 chronic kidney disease or end stage renal disease; Z99.2 Dependence on renal dialysis; D72.829 Elevated white blood cell count, unspecified; D63.8 Anemia in other chronic diseases classified elsewhere; M11.262 Other chondrocalcinosis, left knee; E66.3 Overweight; Z68.27 Body mass index [BMI] 27.0-27.9, adult; E11.9 Type 2 diabetes mellitus without complications
CPT/HCPCS: 36415; 71045; 80048; 80053; 82962; 83605; 83735; 84100; 85025; 85610; 85730; 87040; 87081; 90935; 99217; 99285-25; G0378